=== PATIENT | female | born 1990 | race Caucasian/White ===

== ENCOUNTER 2021-09-07 13:21 | Emergency (ER) | payer OTHER ==
[~2021-09-07] VITALS: Ht 162.6 cm; Wt 112.0 kg
[~2021-09-07 13:21] MED LIST: FERR325E14 PO; PREN-385 PO; prenatal vits
[2021-09-07 13:35] VITALS: BP 145/89
[2021-09-07] MEDS ORDERED: FLUORESCEIN OPTH STRIP 1 MG OP ONE (13:45)
[2021-09-07] MEDS ORDERED: TETRACAINE HCL/PF 0.5% OPTH 4 ML BTL OP ONE (13:45)
--- NOTE | 2021-09-07 13:45 | NUR ---
HARPAL PEREZ EXAMINING PT
--- NOTE | 2021-09-07 13:45 | NUR ---
PT SENT TO LOBBY
--- NOTE | 2021-09-07 13:45 | NUR ---
30 Y/O FEMALE BIB SELF WITH C/O EYE PAIN. STATES SHE ACCIDENTALLY SCRATCHED HER LEFT EYE YESTERDAY MORNING. WAS SEEN AT URGENT CARE YESTERDAY AND WAS TOLD TO COME TO ED IF SCRATCH GOT WORSE. DENIES BLURRED VISION. VISUAL ACUITY IN TRIAGE R 20/20 L 20/25 BOTH 20/20. REDNESS TO LT EYE NOTED. MEDHX: DENIES ALLERGIES: DENIES
[2021-09-07] MEDS ORDERED: ERYT5OIN58 OP (14:01)
[2021-09-07 14:10] VITALS: BP 145/89
--- NOTE | 2021-09-07 14:10 | NUR ---
Patient discharged with v/s stable. Written and verbal after care instructions given and explained. Patient alert, oriented and verbalized understanding of instructions. Ambulatory with steady gait. All questions addressed prior to discharge. ID band removed. Patient advised to follow up with PMD. Rx of ERYTHROMYCIN given. Patient educated on indication of medication including possible reaction and side effects. Opportunity to ask questions provided and answered.
== END 2021-09-07 14:10 | disposition home or self-care (01) ==
LOC: MED 13:21
DX: S05.02XA Injury of conjunctiva and corneal abrasion without foreign body, left eye, initial encounter (principal); H11.32 Conjunctival hemorrhage, left eye; Z79.899 Other long term (current) drug therapy; X58.XXXA Exposure to other specified factors, initial encounter; Y93.89 Activity, other specified; Y92.89 Other specified places as the place of occurrence of the external cause; Y99.8 Other external cause status
CPT/HCPCS: 99283

== ENCOUNTER 2022-06-26 21:25 | Emergency (ER) | payer OTHER ==
[~2022-06-26] VITALS: Ht 162.6 cm; Wt 106.1 kg
[~2022-06-26 21:25] MED LIST changes: +ERYT5OIN58 OP
[2022-06-26 21:53] VITALS: BP 115/65
--- NOTE | 2022-06-26 21:54 | NUR ---
Dr. Gomez examining patient.
[2022-06-26 22:10] VITALS: BP 115/65
[2022-06-26] MEDS ORDERED: NAPR-54 PO (23:21)
--- NOTE | 2022-06-26 23:25 | NUR ---
patient cleared for discharge by . Discharge instructions and medication adminstration/side effects explained by Dr. Gomez. Rx NAPROSYN of provided.
== END 2022-06-26 23:25 | disposition home or self-care (01) ==
LOC: MED 21:25
DX: M54.9 Dorsalgia, unspecified (principal); M41.80 Other forms of scoliosis, site unspecified; Z79.899 Other long term (current) drug therapy
CPT/HCPCS: 72110; 81002; 81025; 99283

== ENCOUNTER 2023-09-26 18:00 | Emergency (ER) | payer OTHER ==
[~2023-09-26] VITALS: Ht 165.1 cm; Wt 104.3 kg
[~2023-09-26 18:00] MED LIST changes: +NAPR-54 PO
[2023-09-26 18:10] VITALS: BP 128/55; PULSE 64; RESP 15; TEMP 97.4; O2SAT 100
[2023-09-26 18:29] LABS: APPEARANCE,URINE CLEAR (CLEAR); BILIRUBIN,URINE NEGATIVE (NEGATIVE); BLOOD, URINE NEGATIVE (NEGATIVE); COLOR,URINE YELLOW (YELLOW); LEUKOCYTE ESTERASE ,URINE NEGATIVE (NEGATIVE); NITRITE, URINE NEGATIVE (NEGATIVE); PH,URINE 6.5 (5.0-9.0); PROTEIN,URINE NEGATIVE (NEGATIVE); UGLUCOSE NEGATIVE (NEGATIVE); UROBILINOGEN,URINE 0.2 EU/dL (0.2 - 1)
[2023-09-26] MEDS ORDERED: KETOROLAC 60 MG/2 ML VIAL IM ONE (19:10)
[2023-09-26 19:30] LABS: BASOPHILS % (AUTO) 0.8 % (0.0-2.0); EOSINOPHILS # (AUTO) 0.1 K/uL (0-0.4); EOSINOPHILS % (AUTO) 2.1 % (0.0-4.0); HEMATOCRIT 35.7 % (36-48); HEMOGLOBIN 11.6 g/dL (12.0-16.0); LYMPHOCYTES # (AUTO) 2.6 K/uL (2.5-16.5); LYMPHOCYTES % (AUTO) 40.2 % (20.5-51.1); MEAN CORPUSCULAR HEMOGLOBIN 27 pg (27-31); MEAN CORPUSCULAR HGB CONC 33 g/dL (33-37); MEAN CORPUSCULAR VOLUME 81.5 fL (80-94); MONOCYTES # (AUTO) 0.5 K/uL (0.8-1.0); MONOCYTES % (AUTO) 8.3 % (1.7-9.3); NEUTROPHILS # (AUTO) 3.1 K/uL (1.8-7.7); NEUTROPHILS % (AUTO) 48.6 % (42.2-75.2); PLATELET COUNT (AUTO) 204 K/uL (140-450); RED BLOOD CELL COUNT(AUTO) 4.38 MIL/uL (4.20-5.40); RED CELL DISTRIBUTION WIDTH 16.2 % (11.6-13.7); WHITE BLOOD COUNT (AUTO) 6.4 K/uL (4.8-10.8)
[2023-09-26 19:43] LABS: ALBUMIN 3.5 g/dL (3.4-5.0); ANION GAP 9.8 (8-16); CALCIUM 8.2 mg/dL (8.5-10.1); CARBON DIOXIDE 28.1 mmol/L (21-32); CREATININE 0.9 mg/dL (0.6-1.3); POTASSIUM 3.9 mmol/L (3.5-5.1); TOTAL BILIRUBIN 0.3 mg/dL (0.0-1.0); TOTAL PROTEIN, SERUM 7.2 g/dL (6.4-8.2)
[2023-09-26 19:57] VITALS: O2SAT 100
[2023-09-26] MEDS ORDERED: IBUP-2213 PO (20:20)
== END 2023-09-26 20:31 | disposition home or self-care (01) ==
LOC: MED 18:00
DX: R10.30 Lower abdominal pain, unspecified (principal); M54.50 Low back pain, unspecified; Z79.899 Other long term (current) drug therapy
CPT/HCPCS: 36415; 74176; 80053; 81003; 81025; 83690; 85025; 96372; 99285; J1885

== ENCOUNTER 2024-09-01 08:15 | Emergency (ER) | payer MEDICAID, OTHER ==
[~2024-09-01] VITALS: Ht 162.6 cm; Wt 104.3 kg
[~2024-09-01 08:15] MED LIST changes: +IBUP-2213 PO; +NAPR-337 PO; -NAPR-54 PO
[2024-09-01 08:21] VITALS: BP 124/78; PULSE 70; RESP 16; TEMP 97; O2SAT 98
[2024-09-01] MEDS: KETOROLAC 60 MG/2 ML VIAL IM ONE (09:25)
[2024-09-01 09:36] LABS: APPEARANCE,URINE CLEAR (CLEAR); BILIRUBIN,URINE NEGATIVE (NEGATIVE); BLOOD, URINE NEGATIVE (NEGATIVE); COLOR,URINE YELLOW (YELLOW); LEUKOCYTE ESTERASE ,URINE NEGATIVE (NEGATIVE); NITRITE, URINE POSITIVE (NEGATIVE); PROTEIN,URINE NEGATIVE (NEGATIVE); UGLUCOSE NEGATIVE (NEGATIVE); UROBILINOGEN,URINE 0.2 EU/dL (0.2 - 1)
[2024-09-01 09:59] LABS: RBC,URINE 0-5 /HPF (0-5); WBC,URINE 0-5 /HPF (0-5)
[2024-09-01 10:00] LABS: BACTERIA,URINE FEW /HPF (None Seen); SQUAMOUS EPITHELIAL CELL,UR 0-3 (FEW) /LPF (0-3 (FEW))
[2024-09-01 10:06] LABS: MUCUS,URINE 1+ /LPF (None Seen)
[2024-09-01] MEDS ORDERED: ACET-8905 PO (10:17)
[2024-09-01 10:25] VITALS: BP 128/64; PULSE 63; RESP 16; TEMP 36.11400; O2SAT 98
== END 2024-09-01 10:25 | disposition home or self-care (01) ==
LOC: MED 08:15
DX: M54.6 Pain in thoracic spine (principal); R03.0 Elevated blood-pressure reading, without diagnosis of hypertension; Z79.899 Other long term (current) drug therapy
CPT/HCPCS: 81001; 81025; 96372; 99283; J1885